=== PATIENT | male | born 1995 | race Two or more races ===

== ENCOUNTER 2017-08-13 19:43 | Inpatient (IN) | payer OTHER ==
[~2017-08-13] VITALS: Ht 162.6 cm; Wt 44.5 kg
--- NOTE | 2017-08-13 20:05 | NUR ---
[facility] FROM HOME FOR SOB. PT'S FAMILY STATING "BLOOD TINGE WHILE SUCTIONING TRACHEOSTOMY". PT IS AAOX3 AND ABLE TO SPEAK 1-2 WORD SENTENCES. SKIN IS PALE AND WARM TO TOUCH. PT TRACHED AND ON THE VENT. VENT SETTINGS AC14, 350, 50, 5. MD AT BEDSIDE. RT AT BEDSIDE.
[2017-08-13 20:12] VITALS: BP 140/93
--- NOTE | 2017-08-13 20:26 | NUR ---
PT HAS SHILEY 6 DCT. RT CHANGED OUT PT'S TRACH COMPLETELY. SUCTIONED DONE AND APPROX 50ML SEROUS OUTPUT NOTED. PT IS ON THE MONITOR AND CONTINUOUS PULSE OX. PT'S SAT IS 100%. NO C/O SOB NOTED AT THIS TIME.
[2017-08-13 20:27] LABS: BASOPHILS % (AUTO) 0.1 % (0.0-2.0); EOSINOPHILS # (AUTO) 0.1 /CMM (0.0-0.7); EOSINOPHILS % (AUTO) 0.5 % (0.0-6.0); HEMATOCRIT 40 % (39-51); HEMOGLOBIN 13.9 g/dL (13.5-17.5); LYMPHOCYTES # (AUTO) 2.3 /CMM (0.8-4.8); LYMPHOCYTES % (AUTO) 14.9 % (20.0-44.0); MEAN CORPUSCULAR HEMOGLOBIN 30 PG (26.0-33.0); MEAN CORPUSCULAR HGB CONC 35 g/dl (31.0-36.0); MEAN CORPUSCULAR VOLUME 85 fL (80-96); MONOCYTES # (AUTO) 0.8 /CMM (0.1-1.30); MONOCYTES % (AUTO) 5.4 % (2.0-12.0); NEUTROPHILS % (AUTO) 79.1 % (43.0-81.0); PLATELET COUNT (AUTO) 136 /CMM (150-450); RDW COEFFICIENT OF VARIATION 13.3 (11.5-15.0); RED BLOOD CELL COUNT(AUTO) 4.69 MIL/uL (4.5-6.0); WHITE BLOOD COUNT (AUTO) 15.2 K/uL (4.3-11.0)
[2017-08-13 20:33] LABS: INR 1.12 (0.85-1.15)
--- NOTE | 2017-08-13 20:38 | NUR ---
RADIOLOGY AT BEDSIDE
--- NOTE | 2017-08-13 21:03 | NUR ---
RT CALLED DUE TO PT'S O2 SAT GOING DOWN TO 84% AND TACHY AT 130 BPM. MD NOTIFIED
--- NOTE | 2017-08-13 21:10 | NUR ---
MD AND RT AT BEDSIDE. PT'S FAMILY MEMBER STATES THAT THE PT USUALLY USES 20% O2 AT HOME. HOWEVER, IN THE PAST 24HRS THEY HAVE BEEN USING 50% OF OXYGEN. PT WAS SUCTIONED BY RT AND CURRENT SPO2 IS 98%. TOTAL OF 170ML OF SEROSANGUINEOUS DRAINAGE WAS SUCTIONED OUT VIA TRACH TUBE.
[2017-08-13 21:15] LABS: CALCIUM, SERUM 9.9 mg/dL (8.5-10.1); CREATININE 0.2 mg/dL (0.6-1.3)
[2017-08-13] MEDS ORDERED: IV NS 0.9% 1,000 ML BAG IV ONE (21:30)
[2017-08-13] MEDS ORDERED: IV NS 0.9% 250 ML IV ONE (21:34)
[2017-08-13] MEDS ORDERED: IOHEXOL-350 100 ML VIAL IV ONE (21:34)
[2017-08-13] MEDS ORDERED: CT SWABBABLE VALVE TRANS SET 1 EA INFUS.SET MC ONE (21:35)
[2017-08-13 21:39] LABS: BAND % (MANUAL) 10 % (0.0-5.0); LYMPHOCYTES % (MANUAL) 11 % (16-48); MONOCYTES % (MANUAL) 2 % (0-11.0); NEUTROPHILS % (MANUAL) 77 (42-76)
--- NOTE | 2017-08-13 21:45 | NUR ---
RN, RT, AND EMT TRANSPORTED PT TO CT. PT ON CONTINOUS MONITOR AND PULSE OX.
[2017-08-13 21:58] VITALS: BP 146/97
--- NOTE | 2017-08-13 21:58 | NUR ---
BACK FROM CT. PT WAS IN NO DISTRESS DURING TRANSPORT. PT TOLERATED LAYING FLAT DURING CT-SCAN. PT ON CONTINOUS MONITOR AND PULSE OX.
[2017-08-13] MEDS ORDERED: PIPERACILLIN /TAZOBACTAM 3.375 G VIAL IV ONE (22:27)
[2017-08-13] MEDS ORDERED: LEVOFLOXACIN 750 MG /D5W 150ML 150 ML IV ONE ×2 (22:27→22:30)
[2017-08-13] MEDS ORDERED: PIPERACILLIN /TAZOBACTAM 3.375 G in IV D5W 50 ML IV ONE (22:30)
--- NOTE | 2017-08-13 22:40 | NUR ---
LIVING NURSE BEDSIDE FOR LAB DRAW FOR CULTURES
--- NOTE | 2017-08-13 22:51 | NUR ---
CALLED [facility] TO GIVE REPORT FOR 113-2. WAS TOLD NURSE WOULD CALL BACK
--- NOTE | 2017-08-13 22:57 | NUR ---
HEALTHCARE ADMINISTRATOR OUT OF ROOM
[2017-08-13] MEDS ORDERED: MORPHINE SULFATE INJ 2 MG/ML DISP.SYRIN IV PRN (23:00)
[2017-08-13] MEDS ORDERED: ZOLPIDEM TARTRATE 5 MG TABLET PO PRN (23:00)
[2017-08-13] MEDS ORDERED: ENOXAPARIN SODIUM 30 MG/0.3 ML DISP.SYRIN SQ SCH (23:00)
[2017-08-13] MEDS ORDERED: ACETAMINOPHEN 325 MG TABLET PO PRN (23:00)
[2017-08-13] MEDS ORDERED: MAG HYDROX/AL HYDROX/SIMETH 30 ML UDC PO PRN (23:00)
[2017-08-13] MEDS ORDERED: VANCOMYCIN 1 GM in IV D5W 250 ML IV SCH (23:00)
[2017-08-13] MEDS ORDERED: ALBUTEROL FS 2.5 MG/3 ML VIAL.NEB NEB PRN (23:00)
[2017-08-13] MEDS ORDERED: IV NS 0.9% 500 ML IV ONE (23:00)
[2017-08-13] MEDS ORDERED: MAGNESIUM HYDROXIDE 30 ML UDC PO PRN (23:00)
[2017-08-13] MEDS ORDERED: Z GUARD REMEDY 2 OZ OINT TP PRN (23:00)
[2017-08-13] MEDS ORDERED: ONDANSETRON HCL/PF 4 MG/2 ML VIAL IVP PRN (23:00)
--- NOTE | 2017-08-13 23:08 | NUR ---
REPORT GIVEN TO AURELIANO NIETO [facility] 113-2 FOR NAYELI
--- NOTE | 2017-08-13 23:10 | NUR ---
OWNER ORAL SURGEON NOTES RECEIVED PATIENT FROM ER VIA [facility], TRANSFERRED TO ROOM 113-2, TOLERATED TRANSFER WELL. PATIENT IS AWAKE, ALERT AND ORIENTED X2-3, ABLE TO VERBALIZE NEEDS, WITH FAMILY MEMBERS AT BEDSIDE, INVOLVED WITH THE PATIENT'S CARE. PATIENT NOTED WITH TRACH, ON MECHANICAL VENTILATOR AT PRESCRIBED RATE, TOLERATING WELL, NOTED WITH MODERATE AMOUNT OF BRIGHT RED BLOOD AND OCCASIONAL CLOTS WHEN SUCTIONING. PATIENT PLACED ON TELEMETRY MONITORING, REVEALING SINUS TACHYCARDIA, HR 130s. NOTED WITH GT, FLUSHED AND AUSCULTATED, PATENT AND INTACT, CLAMPED FOR NPO STATUS. IV SITES PATENT AND INTACT, PER ENDORSEMENT FROM ER, LEVAQUIN IV TO BE ADMINISTERED HERE IN [facility]. UNABLE TO COMPLETE FULL SKIN ASSESSMENT, PATIENT UNABLE TO TOLERATE TURNING/REPOSITIONING, BUT SKIN ON LEFT HIP/POSTERIOR AND LATERAL UPPER LEG NOTED TO HAVE EXTENSIVE EXCORIATION. PATIENT MADE COMFORTABLE, PLAN OF CARE DISCUSSED WITH PATIENT AND FAMILY MEMBERS. CALL LIGHT LEFT WITHIN EASY REACH, BED IN LOWEST AND LOCKED POSITION. WILL CONTINUE TO CLOSELY MONITOR
--- NOTE | 2017-08-13 23:22 | NUR ---
ENDORSED THE INFUSION OF LEVOQUIN TO [facility] NURSE EMILIA. HAND WRITTEN ORDER COMPLETED AND GIVEN TO [facility] NURSE.
[2017-08-14] VITALS (45 sets, daily range): BP systolic 67–141; BP diastolic 37–90
--- NOTE | 2017-08-14 | NUR ---
RN NOTES PATIENT RECEIVED ZOSYN IN ER @ 2300, SCHEDULED Q6H, 0000 DOSE HELD. WILL CONTINUE TO CLOSELY MONITOR
[2017-08-14] MEDS ORDERED: MORPHINE SULFATE INJ 4 MG/ML DISP.SYRIN ONE (00:17)
[2017-08-14] MEDS ORDERED: METOPROLOL TARTRATE INJ 5 MG/5 ML AMPUL ONE (00:27)
--- NOTE | 2017-08-14 00:30 | NUR ---
RN NOTES - MEDICATION OVERRIDE NO PHARMACIST AVAILABLE, MEDICATION OVERRIDE FOR DUE MEDS PERFORMED BY RELIEF CHARGE NURSE, NARCOTIC WASTE WITNESSED BY NURSE DURON . WILL ADMINISTER ALL DUE MEDS AND CONTINUE TO CLOSELY MONITOR
[2017-08-14] MEDS: METOPROLOL TARTRATE INJ 5 MG/5 ML AMPUL IVP PRN (00:31)
--- NOTE | 2017-08-14 00:45 | NUR ---
RN NOTES ON ADMISSION, PATIENT NOTED WITH EXCORIATION ON THE POSTERIOR AND LATERAL LEFT LEG. PATIENT UNABLE TO TOLERATE TURNING, PATIENT AND FAMILY REFUSE TO HAVE PHOTOGRAPH TAKEN DUE TO PATIENT'S INTOLERANCE OF POSITION
--- NOTE | 2017-08-14 00:47 | NUR ---
RT NOTE RECD TRACH VENT PT ON NOTED SETTINGS. TRACH INTACT AND SECURED. KNOTTING MACHINE OPERATOR PORTABLE DONE. VENT ALARMS ON AND AUDIBLE. VENT PLUGGED INTO RED OUTLET W/ AMBU BAG AT BEDSIDE. PT CALLS WHEN HE WANTS TO BE SUCTIONED. LAVAGED AND SX SMALL AMOUNT OF BLOOD. WILL CONTINUE TO MONITOR.
[2017-08-14] MEDS: IV NS 0.9% 1,000 ML IV PRN ×3 (00:48→19:56)
[2017-08-14] MEDS ORDERED: VANCOMYCIN 1 GM VIAL ONE (01:48)
[2017-08-14] MEDS ORDERED: PIPERACILLIN /TAZOBACTAM 3.375 G VIAL IV ONE (05:40)
[2017-08-14] MEDS: PIPERACILLIN /TAZOBACTAM 3.375 G in IV D5W 50 ML IV SCH ×6 (05:47→23:15)
--- NOTE | 2017-08-14 07:00 | NUR ---
RN CLOSING NOTES PATIENT RESTING IN BED, SUCTIONED PRN, CONTINUES WITH BRIGHT RED TRACHEAL SECRETIONS. WILL ENDORSE THE PATIENT TO THE AM SHIFT NURSE FOR NAYELI Addendum: 08/14/17 at 0832 by RAVINDRA FRANCISCO RN PATIENT REFUSING TO BE TURNED TO DUE PAIN, SCREAMING "NO" THROUGHOUT SHIFT WHEN ATTEMPTING TO REPOSITION
[2017-08-14 07:11] LABS: ALBUMIN 2.7 g/dL (3.4-5.0); BILIRUBIN,DIRECT 0.1 mg/dL (0.0-0.2); BILIRUBIN,TOTAL 0.4 mg/dL (0.2-1.0); CALCIUM, SERUM 8.4 mg/dL (8.5-10.1); CREATININE 0.2 mg/dL (0.6-1.3); MAGNESIUM 1.7 mg/dL (1.8-2.4); PHOSPHORUS 2.6 mg/dL (2.5-4.9); POTASSIUM 3.4 mmol/L (3.5-5.1); TOTAL PROTEIN, SERUM 7.6 g/dL (6.4-8.2)
[2017-08-14 07:13] LABS: EOSINOPHILS % (AUTO) 0.1 % (0.0-6.0); HEMATOCRIT 30 % (39-51); HEMOGLOBIN 10.3 g/dL (13.5-17.5); LYMPHOCYTES # (AUTO) 0.6 /CMM (0.8-4.8); MEAN CORPUSCULAR HEMOGLOBIN 30 PG (26.0-33.0); MEAN CORPUSCULAR HGB CONC 34 g/dl (31.0-36.0); MEAN CORPUSCULAR VOLUME 87 fL (80-96); MONOCYTES # (AUTO) 0.5 /CMM (0.1-1.30); MONOCYTES % (AUTO) 6.4 % (2.0-12.0); NEUTROPHILS # (AUTO) 7.3 /CMM (1.8-8.9); NEUTROPHILS % (AUTO) 86.5 % (43.0-81.0); PLATELET COUNT (AUTO) 93 /CMM (150-450); RDW COEFFICIENT OF VARIATION 13.9 (11.5-15.0); WHITE BLOOD COUNT (AUTO) 8.4 K/uL (4.3-11.0)
[2017-08-14 07:19] LABS: THYROID STIMULATING HORMONE 1.763 uIU/mL (0.358-3.74)
[2017-08-14 07:21] LABS: INR 1.11 (0.87-1.13)
--- NOTE | 2017-08-14 08:00 | NUR ---
[facility] INITIAL NOTE PATIENT STABLE A/OX3. ASKING TO BE SUCTIONED RT @ BEDSIDE. BLOOD TINGED SECRETIONS. PATIENT FREQUENTLY ASKED TO BE SUCTIONED. EDUCATED PATIENT ON FREQUENCY AND TRAMA REGARDING FREQUENT SUCTION. RT MYLES EDUCATED WELL. ALL SAFETY MEASURE IN PLACE. PT REFUSES TO BE REPOSITIONED.
[2017-08-14 08:30] LABS: BAND % (MANUAL) 4 % (0.0-5.0); LYMPHOCYTES % (MANUAL) 8 % (16-48); MONOCYTES % (MANUAL) 6 % (0-11.0); NEUTROPHILS % (MANUAL) 82 (42-76)
[2017-08-14] MEDS: PANTOPRAZOLE 40 MG VIAL IV SCH (08:38)
--- NOTE | 2017-08-14 10:00 | NUR ---
[facility] NOTE REMOVED PINK STICK NOTE FOR PATIENT SAFETY.
[2017-08-14] MEDS ORDERED: POTASSIUM CHLORIDE 20 MEQ TAB.PRT.SR PO SCH (10:30)
--- NOTE | 2017-08-14 10:36 | NUR ---
DR. MOJICA GAVE ORDERS FOR BROCHOSCOPY,TRIED FAMILY FOR CONSENT AND LEFT MESSAGE,DR. MOJICA NOTIFIED PENDING CONSENT STILL WANT PT. TRANSFERRED TO ICU,AWAITS BED ,NSG SUP AWARE.RT NOTIFIED.
[2017-08-14 10:40] LABS: ABG BASE EXCESS 2.6 mmol/L; ABG OXYGEN SATURATION 98.6 % (92.0-98.5); ABG PCO2 45.3 mmHg (35.0-45.0); ABG PH 7.405 (7.350-7.450); ABG PO2 159.3 mmHg (75.0-100.0); AaDO2 146.2 mmHg; COHb 0.2 % (0.5-1.5); MetHb 0.3 % (0.0-1.5); O2Hb 98.1 % (94.0-97.0); PEEP,BG 5 cm H2O; SITE, ABG Right Radial; VENT MODE, BG AC 50%; VT, ABG 360 mL
--- NOTE | 2017-08-14 11:00 | NUR ---
[facility] NOTE PATINET TRANSFERED TO ICU REPORT GIVEN TO JR RN. RT PRESENT DURING TRANSFER. SENT WITH PERSONAL VENT, AND CHART.
--- NOTE | 2017-08-14 11:11 | NUR ---
WOUND CARE CONSULT: PT REFUSED SKIN ASSESSMENT. PT WAS JUST TRANSFERRED TO ICU. PER NURSING STAFF, PT PREVIOUSLY REFUSED TO BE TURNED FOR PHOTOS. FIRST STEP MATTRESS ORDERED. ALL SKIN PROTECTION MEASURES IN PLACE AND DISCUSSED WITH NURSING STAFF. WILL SEE PT PT CONDITION PERMITS. MD IN AGREEMENT WITH PLAN OF CARE.
[2017-08-14] MEDS ORDERED: METO50TA16 GT (11:53)
[2017-08-14] MEDS ORDERED: CHOL10002 GT (11:53)
--- NOTE | 2017-08-14 11:55 | NUR ---
RT RECD PT TRACH'D SHILEY 6 TRACH INTACT AND SECURED. TOLERATING VENT SETTINGS. ABG DRAWN SHOWED DR MOJICA, TITRATED 02 45%. SX THICK RED BLOODY SECRETIONS. PT WANTS TO BE SUCTIONED CONSTANTLY, DR MOJICA AWARE AND SAID TO MINIMIZE SX PT DUE TO BLOOD. PT TRANSFERED TO ICU
[2017-08-14] MEDS ORDERED: PROPOFOL 100 ML IV PRN (12:30)
[2017-08-14] MEDS ORDERED: MORPHINE SULFATE INJ 4 MG/ML DISP.SYRIN IV PRN (12:30)
[2017-08-14] MEDS: Magnesium 1GM/D5W 100ML PREMIX 100 ML IV SCH ×2 (12:35→14:32)
[2017-08-14] MEDS: methylPREDNISolone SOD SUCC 125 MG/2ML VIAL IV SCH ×2 (12:36→20:09)
[2017-08-14] MEDS: PROPOFOL 10MG/ML 50ML 50 ML IV PRN ×3 (13:05→23:14)
[2017-08-14] MEDS ORDERED: LORAZEPAM INJ 2 MG/ML VIAL ONE (13:31)
[2017-08-14] MEDS ORDERED: LORAZEPAM INJ 2 MG/ML VIAL IV ONE (14:00)
[2017-08-14] MEDS ORDERED: FEE PK DOSING 1 MIN EA MC ONE (14:12)
[2017-08-14] MEDS: VANCOMYCIN 0.75 GM in IV D5W 250 ML IV SCH (14:30)
--- NOTE | 2017-08-14 15:02 | NUR ---
RESP THERAPIST POST BRONCHOSCOPY NOTE. BRONCHOSCOPY PROCEDURE DONE BY MD. PATIENT BP REMAINS MARGINAL AND TOTAL 1.5L BOLUS ORDERED BY MD. PATIENT TO BE PLACED ON LEFT LATERAL SIDE ONLY PER CRYSTALIZER OPERATOR RECOMMENDATION. UNABLE TO PLACE THE PATIENT ON KCI MATTRESS DUE TO HEMODYNAMIC INSTABILITY. UNABLE TO TURN AND REPOSITION THE PATIENT AT THIS TIME DUE TO HEMODYNAMIC INSTABILITY. TOTAL OF 2MG ATIVAN GIVEN DURING THE PROCEDURE. ATIVAN WAS OVERRIDDEN BY CHARGE NURSE.
[2017-08-14 15:22] LABS: BASOPHILS % (AUTO) 0.3 % (0.0-2.0); EOSINOPHILS % (AUTO) 0.3 % (0.0-6.0); HEMATOCRIT 24 % (39-51); HEMOGLOBIN 8.1 g/dL (13.5-17.5); LYMPHOCYTES # (AUTO) 0.3 /CMM (0.8-4.8); LYMPHOCYTES % (AUTO) 7.6 % (20.0-44.0); MEAN CORPUSCULAR HEMOGLOBIN 30 PG (26.0-33.0); MEAN CORPUSCULAR HGB CONC 34 g/dl (31.0-36.0); MEAN CORPUSCULAR VOLUME 87 fL (80-96); MONOCYTES # (AUTO) 0.2 /CMM (0.1-1.30); MONOCYTES % (AUTO) 3.7 % (2.0-12.0); NEUTROPHILS # (AUTO) 3.8 /CMM (1.8-8.9); NEUTROPHILS % (AUTO) 88.1 % (43.0-81.0); PLATELET COUNT (AUTO) 74 /CMM (150-450); RDW COEFFICIENT OF VARIATION 14.4 (11.5-15.0); RED BLOOD CELL COUNT(AUTO) 2.75 MIL/uL (4.5-6.0); WHITE BLOOD COUNT (AUTO) 4.4 K/uL (4.3-11.0)
[2017-08-14] MEDS: POTASSIUM CL. PREMIX PERIPHER. 50 ML IV SCH ×2 (15:22→17:24)
[2017-08-14] MEDS ORDERED: IV NS 0.9% 1,000 ML IV STA (15:31)
--- NOTE | 2017-08-14 18:45 | NUR ---
CONTRACTOR FIELD HAULING PATIENT REFUSED CARE DURING THE SHIFT. PATIENT REFUSES TO HAVE SCRAL WOUND PHOTOGRAPHED. PATIENT REFUSES NEW CATH INSERTION. PATIENT REFUSES TURNING AND REPOSITIONING. PATIENT REFUSES KCI MATTRESS. PATIENT TO BE PLACED ON LEFT LATERAL AT ALL TIMES PER RAILROAD OPERATOR ORDER.
--- NOTE | 2017-08-14 19:30 | NUR ---
LITHOGRAPH OPERATOR: RECEIVED TRACH TO VENT PT, TOLERATING VENT SETTINGS ORDERED. ON S/P BRONCHOSCOPY, STILL NOTED WT TRACHEAL BLEEDING DURING WHEN SUCTIONED. SEDATED ON DIPRIVAN AT 5MCG/KG/MIN, WITHDRAWS TO LOCALIZED PAIN. ST ON [address] PAINTER HELPER WT HR IN LOW 100s. AFEBRILE. GT CLAMPED AT THIS TIME. ELIUD MIDLINE INFUSING NS AT 125ML/HR. WILL REMAIN ON LEFT SIDE PER PULMO ORDER. SAFETY PRECAUTION NOTED. WILL CONTINUE TO MONITOR.
--- NOTE | 2017-08-14 20:41 | NUR ---
PT RECEIVED TRACHED SHLY 6 ON VENT. TOLERATING VENT SETTINGS. NO RESP DISTRESS. SX'D FOR LARGE AMT OF THIN TINGED SECRETIONS. VENT ALARMS SET AND AUDIBLE. AMBU BAG AT BEDSIDE. VENT PLUGGED INTO RED OUTLET. WILL CONTINUE TO MONITOR. Addendum: 08/14/17 at 2042 by MARISELA MCCORD RT Amended: Links added.
--- NOTE | 2017-08-14 22:00 | NUR ---
FIELD ADMINISTRATIVE ASSISTANT: PARENTS AT BEDSIDE. PT ABLE TO WAKE UP WHEN STIMULATED, ABLE TO FOLLOW COMMANDS AND MOUTH WORDS, ABLE TO VOID ON URINAL. COLLECTED URINE SPECIMEN VIA CLEAN CATCH.
[2017-08-14 23:35] LABS: APPEARANCE,URINE CLEAR (CLEAR); BILIRUBIN,URINE NEGATIVE (NEGATIVE); BLOOD, URINE NEGATIVE Ery/uL (NEGATIVE); COLOR,URINE YELLOW (YELLOW); KETONES,URINE TRACE (NEGATIVE); LEUKOCYTE ESTERASE ,URINE NEGATIVE (NEGATIVE); NITRITE, URINE NEGATIVE (NEGATIVE); PH,URINE 5.5 (5.0-8.0); PROTEIN,URINE NEGATIVE (NEGATIVE); UGLUCOSE NEGATIVE (NEGATIVE); UROBILINOGEN,URINE 0.2 EU/dL (0.2)
[2017-08-14 23:41] LABS: BACTERIA,URINE Few /HPF (None Seen); RBC,URINE 0-2 /HPF (0-2); SQUAMOUS EPITHELIAL CELL,UR Few /HPF (None Seen); WBC,URINE 0-2 /HPF (0-3)
[2017-08-15] VITALS (67 sets, daily range): BP systolic 81–119; BP diastolic 44–82
[2017-08-15] MEDS: VANCOMYCIN 0.75 GM in IV D5W 250 ML IV SCH ×2 (02:08→13:47)
[2017-08-15] MEDS: IV NS 0.9% 1,000 ML IV PRN ×3 (03:00→21:30)
--- NOTE | 2017-08-15 04:15 | NUR ---
SMOKE JUMPER SUPERVISOR: PT REFUSED FULL BED BATH. PARTIAL CARE RENDERED TOLERATED FAIRLY. NO ACUTE DISTRESS. NO C/O PAIN. REMAINED LIGHTLY SEDATED ON DIPRIVAN AT 5MCG/KG/MIN, ABLE TO MAKE NEEDS KNOWN VIA MOUTHING OF WORDS AND ABLE TO URINATE ON URINAL. VS WITHIN HIS BASELINE. WILL CONTINUE TO MONITOR.
[2017-08-15] MEDS: methylPREDNISolone SOD SUCC 125 MG/2ML VIAL IV SCH ×2 (05:04→13:46)
[2017-08-15] MEDS: PIPERACILLIN /TAZOBACTAM 3.375 G in IV D5W 50 ML IV SCH ×4 (05:08→23:21)
[2017-08-15 05:25] LABS: BASOPHILS % (AUTO) 0.2 % (0.0-2.0); EOSINOPHILS % (AUTO) 0.1 % (0.0-6.0); HEMATOCRIT 22 % (39-51); HEMOGLOBIN 7.8 g/dL (13.5-17.5); LYMPHOCYTES # (AUTO) 0.5 /CMM (0.8-4.8); LYMPHOCYTES % (AUTO) 16.2 % (20.0-44.0); MEAN CORPUSCULAR HEMOGLOBIN 30 PG (26.0-33.0); MEAN CORPUSCULAR HGB CONC 35 g/dl (31.0-36.0); MEAN CORPUSCULAR VOLUME 86 fL (80-96); MONOCYTES % (AUTO) 1.6 % (2.0-12.0); NEUTROPHILS # (AUTO) 2.5 /CMM (1.8-8.9); NEUTROPHILS % (AUTO) 81.9 % (43.0-81.0); PLATELET COUNT (AUTO) 129 /CMM (150-450); RDW COEFFICIENT OF VARIATION 14.2 (11.5-15.0); RED BLOOD CELL COUNT(AUTO) 2.59 MIL/uL (4.5-6.0); WHITE BLOOD COUNT (AUTO) 3.1 K/uL (4.3-11.0)
[2017-08-15 06:21] LABS: CALCIUM, SERUM 7.1 mg/dL (8.5-10.1); CREATININE 0.1 mg/dL (0.6-1.3); POTASSIUM 3.3 mmol/L (3.5-5.1)
--- NOTE | 2017-08-15 06:40 | NUR ---
LPN PER DIEM: SEDATED ON DIPRIVAN AT 10MCG/KG/MIN. EASILY AROUSABLE, ABLE TO MAKE NEEDS KNOWN VIA MOUTHING OF WORDS. STILL NOTED WT MINIMAL AMT. OF TRACHEAL BLEEDING WHEN SUCTIONED. ABLE TO VOID ON URINAL. KEPT ON LEFT SIDE AT ALL TIMES.
--- NOTE | 2017-08-15 07:52 | NUR ---
DEPALLETIZER OPERATOR/ SEDATION VACATION. RECEIVED PATIENT FORM THE PREVIOUS SHIFT. PATIENT IS IN BED. RESTING COMFORTABLY. VENT SETTINGS REVIEWED AND VERIFIED. SEDATED ON DIPRIVAN. DURING 20 MINUTES SEDATION VACATION PATIENT NOTED TO FULLY FOLLOW COMMANDS. PATIENT ON HIS LEFT LATERAL SIDE PER PULMONOLOGY RECOMMENDATION. PATIENT CLOSELY MONITORED. FAMILY AWARE.
[2017-08-15] MEDS: PANTOPRAZOLE 40 MG VIAL IV SCH (09:17)
[2017-08-15] MEDS: PROPOFOL 10MG/ML 50ML 50 ML IV PRN ×2 (09:17→13:46)
[2017-08-15] MEDS ORDERED: POTASSIUM CHLORIDE 20 MEQ POWDER PACKET GT ONE (10:00)
[2017-08-15 11:25] LABS: BASOPHILS # (AUTO) 0.1 /CMM (0.0-0.2); BASOPHILS % (AUTO) 0.7 % (0.0-2.0); HEMATOCRIT 25 % (39-51); HEMOGLOBIN 8.5 g/dL (13.5-17.5); LYMPHOCYTES # (AUTO) 0.6 /CMM (0.8-4.8); LYMPHOCYTES % (AUTO) 8.1 % (20.0-44.0); MEAN CORPUSCULAR HEMOGLOBIN 30 PG (26.0-33.0); MEAN CORPUSCULAR HGB CONC 34 g/dl (31.0-36.0); MEAN CORPUSCULAR VOLUME 88 fL (80-96); MONOCYTES # (AUTO) 0.1 /CMM (0.1-1.30); MONOCYTES % (AUTO) 1.5 % (2.0-12.0); NEUTROPHILS # (AUTO) 6.9 /CMM (1.8-8.9); NEUTROPHILS % (AUTO) 89.7 % (43.0-81.0); PLATELET COUNT (AUTO) 73 /CMM (150-450); RDW COEFFICIENT OF VARIATION 14.6 (11.5-15.0); RED BLOOD CELL COUNT(AUTO) 2.88 MIL/uL (4.5-6.0); WHITE BLOOD COUNT (AUTO) 7.7 K/uL (4.3-11.0)
[2017-08-15 11:50] LABS: BAND % (MANUAL) 4 % (0.0-5.0); LYMPHOCYTES % (MANUAL) 9 % (16-48); MONOCYTES % (MANUAL) 5 % (0-11.0); NEUTROPHILS % (MANUAL) 82 (42-76)
[2017-08-15] MEDS: LORAZEPAM INJ 2 MG/ML VIAL IV PRN ×2 (14:13→23:24)
[2017-08-15] MEDS: MORPHINE SULFATE INJ 4 MG/ML DISP.SYRIN IV PRN (14:14)
--- NOTE | 2017-08-15 17:21 | NUR ---
KNIT GOODS MENDER PATIENT IS STILL SEDATED/ LETHARGIC FROM PROCEDURE ANESTHESIA. PATIENT IS NO LONGER ON ORDERS TO KEEP ON LEFT SIDE PER COMMAND AND CONTROL OFFICER. PATIENT REFUSES TURNING AND REPOSITIONING POST BRONCHOSCOPY. PATIENT REFUSES FIRST STEP MATTRESS AT THIS TIME. PATIENT REFUSES TO HAVE SACRAL WOUND CONDITIONS EVALUATED AT THIS TIME DUE TO PAIN. REFUSES PAIN MEDICATIONS. RN EDUCATED FAMILY REGARDING RISKS AND BENEFITS. AFEBRILE. STABLE VITAL SINGS. WILL CONTINUE TO MONITOR AND PROVIDE CARE.
--- NOTE | 2017-08-15 23:12 | NUR ---
SWITCHBOARD OPERATOR RECEPTIONIST DF PT REFUSING TO BE TURNED Q 2 HOURS. PT WANTS TO BE TURNED ON HIS LEFT SIDE ONLY. PT ALSO REFUSED 1ST STEP AIR MATTRESS. ASSISTED PT WITH ALL NEEDS. PT VSS NO ACUTE DISTRESS NOTED.
--- NOTE | 2017-08-15 23:32 | NUR ---
PERSONNEL SECURITY SPECIALIST DF PT AGITATED,RESTLESS, C/O INSOMNIA INABILITY TO RELAX. ATIVAN 2MG IVP ADMIN FOR AGITATION.VSS PT A/OX4.
[2017-08-16] VITALS (28 sets, daily range): BP systolic 99–132; BP diastolic 54–95
[2017-08-16] MEDS: VANCOMYCIN 0.75 GM in IV D5W 250 ML IV SCH ×2 (02:44→14:29)
--- NOTE | 2017-08-16 04:29 | NUR ---
PATIENT RECEIVED ON [facility] VENT WITH SETTINGS ORDERED BY ANUPAMA [place]. VENT ALARMS CHECKED & AUDIBLE THROUGH OUT ICU UNIT. CUFF PRESSURE CHECKED EXTERNAL GRINDER TENDER. PT SUCTIONED Q2 & PRN FOR MOD AMOUNT OF SEMITHICK SECRETIONS. B/S DIMINISHED. PATIENT APPEARS COMFORTABLE. AMBU BAG AT [facility]. MECHANICAL VENTILATOR PLUGGED INTO RED OUTLET. WILL CONTINUE TO MONITOR. Addendum: 08/16/17 at 0429 by ALMAZ DYER RT Amended: Links added.
[2017-08-16] MEDS: PIPERACILLIN /TAZOBACTAM 3.375 G in IV D5W 50 ML IV SCH ×3 (05:08→18:37)
[2017-08-16] MEDS: IV NS 0.9% 1,000 ML IV PRN (05:08)
[2017-08-16 05:23] LABS: HEMATOCRIT 22 % (39-51); HEMOGLOBIN 7.7 g/dL (13.5-17.5); LYMPHOCYTES # (AUTO) 0.4 /CMM (0.8-4.8); LYMPHOCYTES % (AUTO) 7.1 % (20.0-44.0); MEAN CORPUSCULAR HEMOGLOBIN 30 PG (26.0-33.0); MEAN CORPUSCULAR HGB CONC 34 g/dl (31.0-36.0); MEAN CORPUSCULAR VOLUME 87 fL (80-96); MONOCYTES # (AUTO) 0.3 /CMM (0.1-1.30); MONOCYTES % (AUTO) 5.2 % (2.0-12.0); NEUTROPHILS # (AUTO) 4.8 /CMM (1.8-8.9); NEUTROPHILS % (AUTO) 87.7 % (43.0-81.0); PLATELET COUNT (AUTO) 66 /CMM (150-450); RDW COEFFICIENT OF VARIATION 14.3 (11.5-15.0); RED BLOOD CELL COUNT(AUTO) 2.57 MIL/uL (4.5-6.0); WHITE BLOOD COUNT (AUTO) 5.5 K/uL (4.3-11.0)
[2017-08-16] MEDS: MORPHINE SULFATE INJ 4 MG/ML DISP.SYRIN IV PRN ×4 (05:31→23:37)
--- NOTE | 2017-08-16 05:31 | NUR ---
EDUCATIONAL ADVISOR DF PT RESTLESS,AGITATED COMPLAINING OF BODY PAIN/DISCOMFORT 2ND TO MUSCULAR DYSTROPHY. I AND FLEXOGRAPHIC PRESS PLATE SETTER ATTEMPTED MULTIPLE WAYS TO REPOSITION FOR COMFORT AND PT REMAINS UNCOMFORTABLE WITH PAIN SCORE OF 7/10. PT WITH FACIAL GRIMACING AND MOANING AFTER AM CARE.
[2017-08-16 05:56] LABS: CALCIUM, SERUM 7.4 mg/dL (8.5-10.1); CREATININE 0.1 mg/dL (0.6-1.3)
[2017-08-16 05:59] LABS: POTASSIUM 2.4 mmol/L (3.5-5.1)
[2017-08-16] MEDS ORDERED: POTASSIUM CHLORIDE 20 MEQ TAB.PRT.SR PO ONE ×2 (06:17→06:30)
[2017-08-16 06:25] LABS: BAND % (MANUAL) 2 % (0.0-5.0); LYMPHOCYTES % (MANUAL) 5 % (16-48); MONOCYTES % (MANUAL) 8 % (0-11.0); NEUTROPHILS % (MANUAL) 85 (42-76)
--- NOTE | 2017-08-16 07:10 | NUR ---
SALES SERVICE TECHNICIAN DF REPORT GIVEN TO LEODAN BEDOYA ENDORSED 40 MEQ IV KCL NOT AVAILABLE IN ICU PYXIS. PHARMACY TO PREPARE.
--- NOTE | 2017-08-16 07:30 | NUR ---
BENZOL STILL OPERATOR RECEIVED PATIENT AWAKE ON MECHANICAL VENTILATORY SUPPORT SATURATING 98% ALERT ORIENTED X 3 AFEBRILE MONITORED BLOOD PRESSURE CLOSELY CLAMPED PEG, NO RESIDUAL NOTED USES URINAL NO OTHER COMPLAINTS NOTED
[2017-08-16] MEDS: POTASSIUM CL. PREMIX PERIPHER. 50 ML IV SCH ×4 (08:23→11:20)
[2017-08-16] MEDS: PANTOPRAZOLE 40 MG VIAL IV SCH (08:23)
--- NOTE | 2017-08-16 08:46 | NUR ---
WOUND CARE CONSULT: PT PRESENTS WITH LEFT ABDOMEN AND FLANK HEALING WOUNDS, PRESENT ON ADMISSION. PT NOTED TO HAVE SCALY SKIN CONDITION TO LEFT HIP/THIGH AREA PRESENT ON ADMISSION. FIRST STEP MATTRESS ORDERED. ALL SKIN PROTECTION AND WOUND RECOMMENDATIONS DISCUSSED WITH NURSING STAFF. RECOMMEND SURGICAL CONSULT. PT IS INCONTINENT AND IMMOBILE WITH CURRENT ILEANA SCORE OF 13. WILL SEE PRN. [place] IN AGREEMENT WITH PLAN OF CARE. Addendum: 08/16/17 at 0848 by DEWEY HERNANDEZ WNDNU Amended: Links added.
--- NOTE | 2017-08-16 09:14 | NUR ---
RT PATIENT RECEIVED TRACH'D WITH SHILEY #6 CUFFED ON VENT WITH SETTINGS PER MD ORDER. DIGITAL ASSET COORDINATOR DONE. SUCTIONED MOD AMOUNTS OF THICK, BLOOD-TINGED SECRETIONS. TRACH SECURED AND AIRWAY PATIENT. PT IS AWAKE AND ALERT. VENT ALARMS ON AND FUNCTIONING PROPERLY. AMBU BAG AT BEDSIDE. NO SIGNS OF DISTRESS NOTED AT THIS TIME. WILL CONTINUE TO MONITOR THE PATIENT FOR ANY CHANGES. Addendum: 08/16/17 at 1115 by DEMETRIUS HAMMER RT Amended: Links added.
[2017-08-16] MEDS ORDERED: IV 1/2NS 1000 ML 1,000 ML IV PRN (10:00)
[2017-08-16 12:23] LABS: *ANCANTIMYELOPEROXIDASE (MPO) <9.0 U/mL (0.0-9.0); *ANCANTIPROTEINASE 3 (PR-3) AB <3.5 U/mL (0.0-3.5)
[2017-08-16] MEDS: MULTIVITAMINS,THERAGRAN 1 UDTAB TABLET GT SCH (13:54)
[2017-08-16 15:11] LABS: *ANCA ATYPICAL p-ANCA <1:20 titer (Neg:<1:20); *ANCA CYTOPLASMIC (C-ANCA) <1:20 titer (Neg:<1:20); *ANCA PERINUCLEAR (P-ANCA) <1:20 titer (Neg:<1:20)
[2017-08-16 16:07] LABS: HEMOGLOBIN 8.3 g/dL (13.5-17.5)
--- NOTE | 2017-08-16 17:00 | NUR ---
END PACKER NO BLEEDING SEEN DURING SUCTIONING PATIENT REFUSED KCI MATTRESS, HE SAID HE DOES NOT NEED IT TRANSFERRED TO [facility], MARISELA RN , GIVEN REPORT AT BEDSIDE
[2017-08-16] MEDS: THIAMINE HCL 100 MG TABLET PO SCH (18:36)
--- NOTE | 2017-08-16 19:00 | NUR ---
TD RN NOTES RECEIVED PT FROM ICU ENDORSED GIVEN BY ICU NURSE. PT STABLE UPON BEDSIDE REPORT.
--- NOTE | 2017-08-16 19:40 | NUR ---
TD RN NOTES NO ACUTE CHANGES NOTED DURING THE SHIFT. DUE MEDS GIVEN. PROVIDED COMFORT AND SAFETY. ENDORSED TO THE PM NURSE FOR NAYELI.
--- NOTE | 2017-08-16 20:00 | NUR ---
RN NOTES RECEIVED PATIENT AWAKE IN BED WITH FAMILY AT BEDSIDE. NO DISTRESS NOTED. BREATHING EVEN AND UNLABORED. VENT SETTING WELL TOLERATED. ALERT AND ORIENTED, ABLE TO COMMUNICATE NEEDS THROUGH MOUTHWORDS. COMPLAINT OF LEG PAIN 02/28. GTUBE FEEDING WELL TOLERATED. HOB ELEVATED. CONTINENT OF BLADDER FUNCTION. KEPT CLEAN AND DRY.
[2017-08-16] MEDS: CEFEPIME 1 GM in IV D5W 50 ML IV SCH (21:32)
--- NOTE | 2017-08-16 21:54 | NUR ---
Received pt on vent support, pt stable on current settings, no SOB or respiratory distress noted.Ventilator is plugged into red outlet, alarms are audible, ambu bag at bedside. Will continue monitoring per MDS orders. Addendum: 08/16/17 at 2155 by MONTY GOEL RT Amended: Links added.
[2017-08-16] MEDS: METOPROLOL TARTRATE INJ 5 MG/5 ML AMPUL IVP PRN (22:31)
[2017-08-16] MEDS: FIBERSOURCE HN 1,000 ML BOTTLE GT PRN (22:33)
[2017-08-17] VITALS (10 sets, daily range): BP systolic 105–118; BP diastolic 56–81
[2017-08-17] MEDS: LORAZEPAM INJ 2 MG/ML VIAL IV PRN ×2 (03:08→08:45)
[2017-08-17] MEDS: MORPHINE SULFATE INJ 4 MG/ML DISP.SYRIN IV PRN (06:43)
--- NOTE | 2017-08-17 06:59 | NUR ---
RN CLOSING NOTES PATIENT IN BED, NO DISTRESS NOTED. BREATHING EVEN AND UNLABORED. WITH COMPLAINT OF PAIN, MOSTLY ON THE RIGHT KNEE. ONLY TURNED TO LEFT LATERAL REQUESTED BY THE PATIENT. HEART RATE REMAINS HIGH FROM 120'S TO 140'S. KEPT CLEAN AND DRY. WILL ENDORSE TO AM SHIFT FOR CONTINUITY OF CARE.
[2017-08-17 07:20] LABS: BASOPHILS % (AUTO) 0.3 % (0.0-2.0); HEMATOCRIT 26 % (39-51); HEMOGLOBIN 8.8 g/dL (13.5-17.5); LYMPHOCYTES # (AUTO) 0.9 /CMM (0.8-4.8); LYMPHOCYTES % (AUTO) 12.4 % (20.0-44.0); MEAN CORPUSCULAR HEMOGLOBIN 30 PG (26.0-33.0); MEAN CORPUSCULAR HGB CONC 34 g/dl (31.0-36.0); MEAN CORPUSCULAR VOLUME 87 fL (80-96); MONOCYTES # (AUTO) 0.5 /CMM (0.1-1.30); MONOCYTES % (AUTO) 6.1 % (2.0-12.0); NEUTROPHILS # (AUTO) 6.1 /CMM (1.8-8.9); NEUTROPHILS % (AUTO) 81.2 % (43.0-81.0); PLATELET COUNT (AUTO) 77 /CMM (150-450); RED BLOOD CELL COUNT(AUTO) 2.96 MIL/uL (4.5-6.0); WHITE BLOOD COUNT (AUTO) 7.5 K/uL (4.3-11.0)
[2017-08-17 07:31] LABS: CALCIUM, SERUM 7.2 mg/dL (8.5-10.1); POTASSIUM 3.3 mmol/L (3.5-5.1)
[2017-08-17 07:35] LABS: CREATININE 0.1 mg/dL (0.6-1.3)
[2017-08-17 08:36] LABS: LYMPHOCYTES % (MANUAL) 12 % (16-48); MONOCYTES % (MANUAL) 6 % (0-11.0); NEUTROPHILS % (MANUAL) 82 (42-76)
[2017-08-17] MEDS: CEFEPIME 1 GM in IV D5W 50 ML IV SCH ×2 (08:45→20:56)
[2017-08-17] MEDS: THIAMINE HCL 100 MG TABLET PO SCH (08:45)
[2017-08-17] MEDS: PANTOPRAZOLE 40 MG VIAL IV SCH (08:45)
[2017-08-17] MEDS: HYDROCODONE/APAP 5/325MG 1 EACH TABLET PO PRN (08:46)
[2017-08-17] MEDS: MULTIVITAMINS,THERAGRAN 1 UDTAB TABLET GT SCH (08:47)
--- NOTE | 2017-08-17 09:04 | NUR ---
RECEIVED AWAKE WITH RICHA ND OFF GRIMACING,PRN MEDS GIVEN,FATHER AT BEDSIDE UPDATED WITH PT. CONDITION.
[2017-08-17] MEDS ORDERED: POTASSIUM CHLORIDE 20 MEQ POWDER PACKET GT ONE (11:00)
--- NOTE | 2017-08-17 13:25 | NUR ---
[facility] RN NOTES RECEIVED PATIENT FROM MANAGER PRINTING SUHAIL, NO SIGNS OF DISTRESS, ST ON TELE MONITOR, FAMILY AT BEDSIDE, WILL CONTINUE TO MONITOR CLOSELY.
[2017-08-17] MEDS: METOPROLOL TARTRATE 50 MG TABLET GT SCH (16:08)
--- NOTE | 2017-08-17 18:44 | NUR ---
[facility] RN END NOTES PATIENT RESTING IN BED, ALL NEEDS MET, FAMILY REFUSED BED BATH FOR PATIENT STATING THEY HAD CLEANED HIM AND THEY DONT WANT TO DISTURB HIM. WILL ENDORSE TO SURGICAL TRAINING SPECIALIST FOR CONTINUITY OF CARE.
--- NOTE | 2017-08-17 21:29 | NUR ---
RN NOTES RECEIVED PATIENT IN BED WITH EYES CLOSE. NO DISTRESS NOTED. BREATHING EVEN AND UNLABORED. VENT SETTINGS WELL TOLERATED. FAMILY AT BEDSIDE. NO COMPLAINT OF PAIN OF THIS TIME. ALERT AND ORIENTED. VERBALLY ABLE TO COMMUNICATE NEEDS. VITAL SIGNS WNL. KEPT CLEAN AND DRY.
--- NOTE | 2017-08-17 22:42 | NUR ---
Received pt on vent support, pt stable on current settings, no SOB or respiratory distress noted.Ventilator is plugged into red outlet, alarms are audible, ambu bag at bedside. Will continue monitoring per MDS orders. Addendum: 08/17/17 at 2242 by MONTY GOEL RT Amended: Links added.
[2017-08-18] VITALS: BP 141/78
[2017-08-18 05:00] VITALS: BP 106/70
--- NOTE | 2017-08-18 06:19 | NUR ---
RN CLOSING NOTES CHANGE BED TO [facility]. NO DISTRESS NOTED. SLEPT WELL. NO PAIN MEDS GIVEN. INCREASED FEEDING TO 40ML WITH GOAL OF 60ML/HR. SUCTIONED LARGE AMOUNT OF SEMI LOOSE YELLOWISH SECRETION. NO SIGNIFICANT CHANGE OF CONDITION. WILL ENDORSE TO AM SHIFT FOR CONTINUITY OF CARE.
[2017-08-18] MEDS: FIBERSOURCE HN 1,000 ML BOTTLE GT PRN (06:51)
[2017-08-18 07:25] LABS: BASOPHILS % (AUTO) 0.2 % (0.0-2.0); EOSINOPHILS # (AUTO) 0.1 /CMM (0.0-0.7); EOSINOPHILS % (AUTO) 0.9 % (0.0-6.0); HEMATOCRIT 25 % (39-51); HEMOGLOBIN 8.6 g/dL (13.5-17.5); LYMPHOCYTES # (AUTO) 0.9 /CMM (0.8-4.8); LYMPHOCYTES % (AUTO) 14.8 % (20.0-44.0); MEAN CORPUSCULAR HEMOGLOBIN 30 PG (26.0-33.0); MEAN CORPUSCULAR HGB CONC 34 g/dl (31.0-36.0); MEAN CORPUSCULAR VOLUME 87 fL (80-96); MONOCYTES # (AUTO) 0.3 /CMM (0.1-1.30); MONOCYTES % (AUTO) 5.5 % (2.0-12.0); NEUTROPHILS # (AUTO) 4.6 /CMM (1.8-8.9); NEUTROPHILS % (AUTO) 78.6 % (43.0-81.0); PLATELET COUNT (AUTO) 87 /CMM (150-450); RDW COEFFICIENT OF VARIATION 13.9 (11.5-15.0); WHITE BLOOD COUNT (AUTO) 5.9 K/uL (4.3-11.0)
[2017-08-18 07:34] LABS: CREATININE 0.1 mg/dL (0.6-1.3); POTASSIUM 3.9 mmol/L (3.5-5.1)
[2017-08-18 08:00] VITALS: BP 111/76
[2017-08-18] MEDS: CEFEPIME 1 GM in IV D5W 50 ML IV SCH ×2 (09:54→20:15)
[2017-08-18] MEDS: PANTOPRAZOLE 40 MG VIAL IV SCH (09:55)
[2017-08-18] MEDS: MULTIVITAMINS,THERAGRAN 1 UDTAB TABLET GT SCH (09:55)
[2017-08-18] MEDS: CHOLECALCIFEROL 1,000 UNIT TABLET (VIT D3) GT SCH (09:56)
[2017-08-18] MEDS: THIAMINE HCL 100 MG TABLET PO SCH (09:56)
[2017-08-18] MEDS: METOPROLOL TARTRATE 50 MG TABLET GT SCH ×2 (09:56→17:00)
[2017-08-18 10:00] LABS: LYMPHOCYTES % (MANUAL) 14 % (16-48); MONOCYTES % (MANUAL) 1 % (0-11.0); NEUTROPHILS % (MANUAL) 85 (42-76)
[2017-08-18 12:00] VITALS: BP 99/67
[2017-08-18 16:00] VITALS: BP 109/74
[2017-08-18] MEDS: HYDROCODONE/APAP 5/325MG 1 EACH TABLET PO PRN (16:05)
[2017-08-18] MEDS ORDERED: LEVOFLOXACIN 500 MG /D5W 100ML 500 MG in PREMIX 1 EA IV SCH (19:30)
--- NOTE | 2017-08-18 19:30 | NUR ---
LOGISTICS SYSTEM ENGINEER OPENING NOTES RECEIVED PT IN BED ALERT, AWAKE,RESPONSIVE, VENT DEPENDENT.TRACH PATENT, NO RESPIRATORY DISTRESS NOTED.DENIES ANY PAIN OR DISCOMFORT AT THIS TIME. GT IN PLACE 2ML RESIDUAL NOTED, TOLERATES GTF WELL.CALL LIGHT WITHIN REACH, MOTHER AT THE BEDSIDE.KEPT CLEAN AND COMFORTABLE,ATTENDED ALL NEEDS.WILL CONTINUE TO MONITOR ACCORDINGLY.
[2017-08-18 20:00] VITALS: BP 104/69
--- NOTE | 2017-08-18 20:30 | NUR ---
PT RCVD ON VENT WITH NOTED SETTINGS. VENTS PLUGGED INTO RED OUTLET, VENT ALARM WORKING AND AUDIBLE. SUCTIONED SMALL AMOUNT OF WHITE THICK SECRETIONS. BILATERAL BS NOTED, NO RESPIRATORY DISTRESS NOTED AT THIS TIME. WILL CONTINUE TO MONITOR THE PT.
[2017-08-18] MEDS ORDERED: LEVOFLOXACIN 500 MG /D5W 100ML 100 ML IV ONE (21:03)
[2017-08-18] MEDS ORDERED: COLISTIMETHATE SODIUM 150 MG VIAL ONE (21:42)
[2017-08-18] MEDS ORDERED: WATER FOR INJECTION,STERILE 10 ML ONE (22:35)
[2017-08-18] MEDS: COLISTIMETHATE SODIUM 150 MG VIAL NEB SCH (22:38)
--- NOTE | 2017-08-18 23:15 | NUR ---
RN NOTES PT NOTED WITH HR 124, EVENING DOSE OF METOPROLOL 50 MG HELD PER DAY SHIFT, NOTIFIED DR CALVERT, NEW ORDER RECEIVED FOR METOPROLOL 50MG VIA GT X I DOSE,NOTED AND CARRIED OUT, MEDICATION ADMINISTERED ORDERED.WILL CONTINUE TO MONITOR.
[2017-08-18] MEDS ORDERED: METOPROLOL TARTRATE 50 MG TABLET GT ONE (23:30)
--- NOTE | 2017-08-18 23:40 | NUR ---
RN NOTES PT REFUSED PICTURES TO BE TAKEN, OFFERED X 3 EXPLAINED BENEFITS, REFUSED.WILL MONITOR
[2017-08-19] VITALS: BP 108/74
[2017-08-19] MEDS: FIBERSOURCE HN 1,000 ML BOTTLE GT PRN ×2 (04:22→23:20)
[2017-08-19 05:17] VITALS: BP 112/66
[2017-08-19] MEDS: HYDROCODONE/APAP 5/325MG 1 EACH TABLET PO PRN (06:09)
--- NOTE | 2017-08-19 07:03 | NUR ---
RN CLOSING NOTES PT IN BED AWAKE, VENT DEPENDENT, TRACH PATENT, NO RESPIRATORY DISTRESS NOTED. RESPIRATIONS EVEN, UNLABORED. DENIES ANY PAIN OR DISCOMFORT AT THIS TIME. GT IN PLACE,TOLERATES GTF WELL, HOB ELEVATED.IV SITES INTACT PATENT.REFUSED TO BE TURNED AND REPOSITIONED, OFFERED X3 .REFUSED PICTURES TO BE TAKEN.KEPT CLEAN AND COMFORTABLE, ATTENDED ALL NEEDS. WILL CONTINUE TO MONITOR ACCORDINGLY.
--- NOTE | 2017-08-19 07:10 | NUR ---
PRICING CLERK NOTE: RECEIVED PATIENT IN BED, AWAKE AND NOT ON ANY FORM OF DISTRESS. ON TELE MONITOR, ST WITH HR 116. ON VENT-TRACH DEPENDENT AND TOLERATING WELL THE CURRENT SETTINGS. ON GT FEEDING FIBERSOURCE @60ML/HR AND TOLERATING WELL. (R) UA MIDLINE, (R) HAND 20G AND (L) WRIST 18G NOTED. BED ALARM AND LOCKED ON. SAFETY AND ASPIRATION PRECAUTION OBSERVED. CALL LIGHT WITHIN REACH. DENIED ANY PAIN OR DISCOMFORT.
[2017-08-19 07:56] LABS: CALCIUM, SERUM 8.6 mg/dL (8.5-10.1); POTASSIUM 4.8 mmol/L (3.5-5.1)
[2017-08-19 08:00] VITALS: BP_SYST 106; BP_SYST 130; BP_DIAS 49; BP_DIAS 76
[2017-08-19 08:02] LABS: CREATININE 0.1 mg/dL (0.6-1.3)
[2017-08-19] MEDS: CEFEPIME 1 GM in IV D5W 50 ML IV SCH ×2 (08:49→21:39)
[2017-08-19] MEDS: THIAMINE HCL 100 MG TABLET PO SCH (08:50)
[2017-08-19] MEDS: METOPROLOL TARTRATE 50 MG TABLET GT SCH ×2 (08:50→16:39)
[2017-08-19] MEDS: MULTIVITAMINS,THERAGRAN 1 UDTAB TABLET GT SCH (08:50)
[2017-08-19] MEDS: CHOLECALCIFEROL 1,000 UNIT TABLET (VIT D3) GT SCH (08:50)
[2017-08-19] MEDS: PANTOPRAZOLE 40 MG VIAL IV SCH (09:01)
--- NOTE | 2017-08-19 10:00 | NUR ---
CARPET CLEANER NOTE: PATIENT REFUSED TO BE TURN Q2HR. FAMILY PRESENT AT THE BEDSIDE. DISCUSSED THE IMPORTANCE OF TURNING AND REPOSITIONING. PATIENT STRONGLY REFUSED TO BE TURN. WILL CONTINUE TO OFFER AND CHECK WITH THE PATIENT.
[2017-08-19] MEDS: COLISTIMETHATE SODIUM 150 MG VIAL NEB SCH (11:08)
[2017-08-19 12:00] VITALS: BP 102/69
--- NOTE | 2017-08-19 12:00 | NUR ---
AMBULANCE DRIVER PARAMEDIC NOTE: PATIENT OFFERED TO BE TURNED BUT HE STRONGLY REFUSED. FAMILY PRESENT AT THE BEDSIDE. DISCUSSED THE IMPORTANCE OF TURNING AND REPOSITIONING. PATIENT STRONGLY REFUSED TO BE TURN. WILL CONTINUE TO CHECK THE PATIENT.
--- NOTE | 2017-08-19 14:00 | NUR ---
WEBSPHERE ADMINISTRATOR NOTE: PATIENT OFFERED TO BE REPOSITIONED. MOTHER PRESENT AT THE BEDSIDE. PT STRONGLY REFUSED TO BE MOVED. EXPLAINED THE RISKS AND BENEFITS OF REPOSITIONING. WILL CONTINUE TO OFFER AGAIN.
[2017-08-19 16:00] VITALS: BP 101/65
--- NOTE | 2017-08-19 16:00 | NUR ---
FILTER SCREEN CLEANER NOTE: PATIENT REMAINED ON HIS (L) LATERAL SIDE. OFFERED TO GET REPOSITION, BUT REFUSED TO GET MOVED. MOTHER PRESENT AT THE BEDSIDE. WILL CONTINUE TO EDUCATE ABOUT TURNING.
--- NOTE | 2017-08-19 18:00 | NUR ---
LICENSED PLUMBER NOTE: PATIENT REMAINED ON COMFORTABLE POSITION IN BED. OFFERED TO GET REPOSITION. STRONGLY REFUSED DESPITE RE-EDUCATING THE IMPORTANCE OF IT. WILL CONTINUE TO MONITOR.
--- NOTE | 2017-08-19 18:40 | NUR ---
RT END OF THE SHIFT REPORT: PT. 22 Y OLD MALE ALERT AND RESPONSIVE. REMAIN TRACHED SHILEY # 6 AND ON VENT WITH NOTED SETTINGS, ALARMS ARE SET AND FUNCTIONAL. B/S RHONCHI AND EQUAL CHEST RISE NOTED. NO DISTRESS NOTED T/O SHIFT SUX'D FOR SMALL AMT. OF WHITE SECRETIONS. VENT PLUGGED INTO RED OUT LET AMBU BAT AT THE BEDSIDE. PT. REMAIN STABLE. REPORT WILL BE PASS TO PM SHIFT. Addendum: 08/19/17 at 1842 by SHAILESH CONNOR RT Amended: Links added.
--- NOTE | 2017-08-19 19:12 | NUR ---
LITHOPRESS OPERATOR NOTE: PATIENT IN BED, GT FEEDING (FIBERSOURCE) CONTINUOUSLY RUNNING AT 60ML/HR. ON STABLE CONDITION. DENIED PAIN. REPORT GIVEN TO PM RN FOR CONTINUITY OF CARE. FAMILY PRESENT AT THE BEDSIDE. ON TELE MONITOR, ST 102.
--- NOTE | 2017-08-19 19:27 | NUR ---
PT RCVD ON VENT WITH NOTED SETTINGS. PT IS ALERT AND AWAKE. VENTS PLUGGED INTO RED OUTLET, VENT ALARM WORKING AND AUDIBLE. SUCTIONED SMALL AMOUNT OF WHITE THICK SECRETIONS. BILATERAL BS NOTED, NO RESPIRATORY DISTRESS NOTED AT THIS TIME. WILL CONTINUE TO MONITOR THE PT.
--- NOTE | 2017-08-19 19:40 | NUR ---
FIRE CAPTAIN MARINE INITIAL NOTES, RECEIVE PATIENT IN BED, ALERT AND ORIENTED, ON VENT SETTINGS, BREATHING EVEN AND UNLABORED NO S/S OF SOB OR ACUTE DISTRESS NOTED AT THIS TIME, NO C/O PAIN OR DISCOMFORT AT THIS TIME, FAMILY AT BEDSIDE, RT PROVIDING CARE AT THIS TIME, IV ON RIGHT HAND AND MIDLINE ON ELIUD PATENT AND INTACT. GTF FEEDING FIBERSOURCE RUNNING PER ORDERS AND PATIENT TOLERATING WELL, . BED LOCKED AND IN LOWEST POSITION, NOTED CLEAN AND DRY, CALL LIGHT W/I REACH, WILL CONTINUE TO MONITOR CLOSELY.
[2017-08-19 20:00] VITALS: BP 107/74
[2017-08-19] MEDS: LEVOFLOXACIN 500 MG /D5W 100ML 500 MG in PREMIX 1 EA IV SCH (20:50)
[2017-08-20] VITALS (7 sets, daily range): BP systolic 92–108; BP diastolic 54–66
[2017-08-20] MEDS: LORAZEPAM INJ 2 MG/ML VIAL IV PRN (01:43)
--- NOTE | 2017-08-20 07:00 | NUR ---
RN NOTES, RECEIVE PATIENT IN BED, A/Ox2, VENT/ TRACH DEPENDENT , TOLERATING CURRENT VENT SETTING WELL, BREATHING EVEN AND UNLABORED ,NO S/S OF SOB OR ACUTE DISTRESS NOTED AT THIS TIME, ON TELE HR IS IN 130,S ST , RIGHT UPPER ARM MIDLINE AND R HAND IV G 20 AND L WRIST G 18 SITES CDI, FIBERSOURCE AT 60CC/HR RUNNING VIA GT SITE , TOLERATING WELL, BED LOCKED AND IN LOWEST POSITION,SR UPx3, CALL LIGHT W/I EASY REACH, WILL CONTINUE TO MONITOR CLOSELY.
[2017-08-20 08:06] LABS: CALCIUM, SERUM 8.7 mg/dL (8.5-10.1); CREATININE 0.1 mg/dL (0.6-1.3); POTASSIUM 4.6 mmol/L (3.5-5.1)
[2017-08-20] MEDS: THIAMINE HCL 100 MG TABLET PO SCH (09:03)
[2017-08-20] MEDS: CHOLECALCIFEROL 1,000 UNIT TABLET (VIT D3) GT SCH (09:03)
[2017-08-20] MEDS: PANTOPRAZOLE 40 MG VIAL IV SCH (09:03)
[2017-08-20] MEDS: MULTIVITAMINS,THERAGRAN 1 UDTAB TABLET GT SCH (09:03)
[2017-08-20] MEDS: METOPROLOL TARTRATE 50 MG TABLET GT SCH ×2 (09:08→16:56)
[2017-08-20] MEDS: CEFEPIME 1 GM in IV D5W 50 ML IV SCH ×2 (09:09→21:26)
--- NOTE | 2017-08-20 12:00 | NUR ---
RN NOTES PT REFUSED AM CARE, AND REFUSED TO TURN AND BE REPOSITION . SUPPORTIVE FAMILY AT THE BEDSIDE.
[2017-08-20] MEDS: FIBERSOURCE HN 1,000 ML BOTTLE GT PRN (16:55)
--- NOTE | 2017-08-20 18:23 | NUR ---
closing pt alert oriented mouth speaks remains on ventilator no change in settings. family refused bathing and linen change. suctioned several times per family request no noted secretions. family educated about pt out come to go home. no distress noted all shift.
[2017-08-20] MEDS: LEVOFLOXACIN 500 MG /D5W 100ML 500 MG in PREMIX 1 EA IV SCH (20:08)
[2017-08-21] VITALS: BP 99/63
--- NOTE | 2017-08-21 02:36 | NUR ---
Received pt on vent support, pt stable on current vent settings, no SOB or respiratory distress noted. Mechanical Ventilator is plugged into red outlet, alarms are set & audible, BVM bag at head of bed. Will continue monitoring Addendum: 08/21/17 at 0236 by ALMAZ DYER RT Amended: Links added.
[2017-08-21 04:00] VITALS: BP 97/64
--- NOTE | 2017-08-21 07:18 | NUR ---
RN INITIAL NOTES: REC'D PT AWAKE ON BED, NOT IN ANY DISTRESS, A/O X 4, ABLE TO MAKE NEEDS KNOWN. ON MV VIA TRACH, SATING AT 100%. ON TELEMONITOR, SR W/ HR 96 BPM. ON CONTINUOUS TUBE FEEDING FIBERSOURCE X 60 CC/HR INFUSING WELL VIA GT. HAS 3 IV LINE ACCESS: ELIUD MIDLINE, L WRIST G18, AND R HAND G20 - ALL FLUSHING WELL, PATENT & INTACT W/ NO S/SX OF INFECTION/INFILTRATION NOTED. PROVIDED COMFORT & SAFETY MEASURES. BED KEPT LOW & IN LOCKED POS. CALL LIGHT PLACED W/IN REACH. WILL CONTINUE TO MONITOR AND ATTEND PT NEEDS.
[2017-08-21 07:38] LABS: BASOPHILS % (AUTO) 0.3 % (0.0-2.0); EOSINOPHILS # (AUTO) 0.4 /CMM (0.0-0.7); EOSINOPHILS % (AUTO) 5.2 % (0.0-6.0); HEMATOCRIT 30 % (39-51); HEMOGLOBIN 9.7 g/dL (13.5-17.5); LYMPHOCYTES # (AUTO) 1.3 /CMM (0.8-4.8); LYMPHOCYTES % (AUTO) 18.2 % (20.0-44.0); MEAN CORPUSCULAR HEMOGLOBIN 29 PG (26.0-33.0); MEAN CORPUSCULAR HGB CONC 33 g/dl (31.0-36.0); MEAN CORPUSCULAR VOLUME 87 fL (80-96); MONOCYTES # (AUTO) 0.6 /CMM (0.1-1.30); MONOCYTES % (AUTO) 7.7 % (2.0-12.0); NEUTROPHILS # (AUTO) 4.9 /CMM (1.8-8.9); NEUTROPHILS % (AUTO) 68.6 % (43.0-81.0); PLATELET COUNT (AUTO) 145 /CMM (150-450); RDW COEFFICIENT OF VARIATION 14.1 (11.5-15.0); RED BLOOD CELL COUNT(AUTO) 3.41 MIL/uL (4.5-6.0); WHITE BLOOD COUNT (AUTO) 7.2 K/uL (4.3-11.0)
[2017-08-21 07:57] LABS: CALCIUM, SERUM 8.7 mg/dL (8.5-10.1); CREATININE 0.2 mg/dL (0.6-1.3); PHOSPHORUS 3.8 mg/dL (2.5-4.9); POTASSIUM 4.6 mmol/L (3.5-5.1)
[2017-08-21 08:00] VITALS: BP 103/72
--- NOTE | 2017-08-21 08:38 | NUR ---
RN NOTES: [facility] MED PINK ALERTS ON EMAR CLEARED FOR PT'S SAFETY. MEDICATIONS NON ADMINISTERED.
[2017-08-21] MEDS: CEFEPIME 1 GM in IV D5W 50 ML IV SCH ×2 (08:39→20:00)
[2017-08-21] MEDS: PANTOPRAZOLE 40 MG VIAL IV SCH (08:39)
[2017-08-21] MEDS: MULTIVITAMINS,THERAGRAN 1 UDTAB TABLET GT SCH (08:39)
[2017-08-21] MEDS: CHOLECALCIFEROL 1,000 UNIT TABLET (VIT D3) GT SCH (08:40)
[2017-08-21] MEDS: THIAMINE HCL 100 MG TABLET PO SCH (08:40)
[2017-08-21] MEDS: METOPROLOL TARTRATE 50 MG TABLET GT SCH ×2 (08:41→16:32)
[2017-08-21] MEDS: MORPHINE SULFATE INJ 4 MG/ML DISP.SYRIN IV PRN ×2 (10:37→22:02)
--- NOTE | 2017-08-21 10:39 | NUR ---
RN NOTES: PT C/O CHEST PAIN, 02/28, ACHING & TIGHTNESS. BP 111/76, HR 98, O2 SAT 100%. EXPLAINED TO FAMILY THE NEED TO GIVE MORPHINE TO HELP RELIEVE PAIN. PT ALSO REQUESTED FOR MORPHINE PRN MED. ECG ORDERED STAT. Addendum: 08/21/17 at 1451 by RIKY PARRY RN ECG DONE SHOWED SINUS TACHYCARDIA. PT VERBALIZED THAT HE WAS RELIEVED W/ MORPHINE. AND PT VERBALIZED THAT IT'S MORE OF BECAUSE OF SUCTIONING THAT CAUSING HIS CHEST PAIN.
[2017-08-21 12:00] VITALS: BP 123/80
[2017-08-21] MEDS ORDERED: LEVO750T21 PO (12:19)
[2017-08-21] MEDS ORDERED: MULT-24 GT (12:19)
[2017-08-21] MEDS ORDERED: ALBUT2 NEB (12:19)
[2017-08-21] MEDS ORDERED: Fibersource Hn GT (12:19)
[2017-08-21] MEDS ORDERED: THIA100T13 PO (12:19)
--- NOTE | 2017-08-21 15:00 | NUR ---
RN NOTES: OFFERED BED BATH AND TURNING/ REPOSITIONING TO THE PT BUT PT REFUSED. FAMILY IS AWARE.
[2017-08-21 16:00] VITALS: BP 102/68
--- NOTE | 2017-08-21 17:00 | NUR ---
RN NOTES: PT IS ABOUT TO BE DC TO HOME TODAY ORDERED. HOWEVER, FAMILY IS CONCERNED ABOUT THE TRACH OF THE PT. THEY SAID THAT WHAT THE PT IS USING AT HOME IS CUFFLESS (DASHALEY 6 CFN) AND THEY WANTED TO CHANGE IT PRIOR TO LEAVING. DR. JAIMES MADE AWARE WITH ORDERS MAY CHANGE TRACH PER FAMILY/PT'S REQUEST AND CANCEL THE DC ORDERS FOR NOW. DR. BLOOM ALSO INFORMED AND AGREED FOR ENT REFERRAL FOR TRACH CHANGE. LEFT A VM TO DR. SANDERS/DR. JIMENEZ'S OFFICE REGARDING THE CONSULT. PT & FAMILY UPDATED. SESAR SHARIF INFORMED. Addendum: 08/21/17 at 1916 by RIKY PARRY RN CONSENT SIGNED BY FAMILY FOR TRACH CHANGE, PLACED IN CHART. NICOLE 6 UNCUFFED AT BEDSIDE.
[2017-08-21] MEDS: FIBERSOURCE HN 1,000 ML BOTTLE GT PRN (17:30)
--- NOTE | 2017-08-21 18:18 | NUR ---
DR. ROWE RETURNED CALL WILL CHANGE TRACH IN AM,DELAYED DISCHARGE CM AWARE.
--- NOTE | 2017-08-21 19:00 | NUR ---
RN CLOSING NOTES: NO ACUTE CHANGES NOTED W/IN SHIFT. PT TOLERATED MV SETTINGS VIA TRACH, SATING AT 100%. ON TELEMONITOR, STILL SR/ST. CONTINUOUS TUBE FEEDING FIBERSOURCE X 60 CC/HR TOLERATED WELL, NO RESIDUAL W/IN SHIFT. 3 IV LINE ACCESS: ELIUD MIDLINE, L WRIST G18, AND R HAND G20 - KEPT PATENT & INTACT W/ NO S/SX OF INFECTION/INFILTRATION NOTED. KEPT WELL RESTED. NEEDS ATTENDED. BED KEPT LOW & IN LOCKED POS. CALL LIGHT PLACED W/IN REACH. ENDORSED TO PM RN FOR NAYELI. DR. BLOOM AND DR. JAIMES ORDERED TO CANCEL DC ORDERS TODAY. CN AND CM MADE AWARE.
[2017-08-21 20:00] VITALS: BP 93/57
[2017-08-21] MEDS: LEVOFLOXACIN 500 MG /D5W 100ML 500 MG in PREMIX 1 EA IV SCH (20:00)
--- NOTE | 2017-08-21 20:00 | NUR ---
received patient in bed, with his dad at the bedside. patient is vent/trach dependent, no distress noted saturation 100%. patient is AAO, can make his needs be known by mouth wording. patient refused to be fully assessed, declined skin assessment. patient was explained of importance of skin care and turning Q2H, patient still refused
--- NOTE | 2017-08-21 20:45 | NUR ---
RT RECEIVED PT TRACHED WITH NOTED VENT SETTINGS, DEPUTY FIRE CHIEF DONE AND TRACH IS SECURE. SX WITH MOD THK WHITE/CLEAR SECRETIONS. VENT ALARMS CHECKED AND AUDIBLE. VENT PLUGGED IN RED OUTLET. AMBU BAG NOTED HOB. NO RESP DISTRESS NOTED AT THIS TIME, WILL CONTINUE TO MONITOR T/O SHIFT
--- NOTE | 2017-08-21 22:00 | NUR ---
patient c/o pain to BLE - morphine 4mg IVP given, continue to monitor
--- NOTE | 2017-08-21 22:40 | NUR ---
patient is calm, denies pain at this time. continue to monitor.
[2017-08-22] VITALS (7 sets, daily range): BP systolic 96–116; BP diastolic 61–73
--- NOTE | 2017-08-22 03:50 | NUR ---
patient c/o bilat. leg pain and asked for morphine, morphine 4m IVP was given as ordered continue to monitor
[2017-08-22] MEDS: MORPHINE SULFATE INJ 4 MG/ML DISP.SYRIN IV PRN ×2 (03:52→23:41)
--- NOTE | 2017-08-22 04:30 | NUR ---
pain reduction, patient is asleep
--- NOTE | 2017-08-22 07:30 | NUR ---
FARM MANAGEMENT PROFESSOR AM NOTES: REC'D PT AWAKE IN BED, NOT IN ANY DISTRESS, A/O X 4, ABLE TO MAKE NEEDS KNOWN. SHILEY 6 TRACH TO VENT, SETTING ORDERED, O2 SAT AT 100%, TELEMETRY READS ST HR 111. DENIES CHEST PAIN/DISCOMFORT. ON CONTINUOUS TUBE FEEDING FIBERSOURCE X 60 CC/HR INFUSING WELL VIA GT. 5ML RESIDUAL. IV ACCESS ELIUD MIDLINE, L WRIST G18, ALL FLUSHING WELL, SITE CLEAR. REFUSE BODY ASSESSMENT. COMFORT & SAFETY MEASURES IN PLACE. BED LOW & IN LOCKED POS. CALL LIGHT PLACED W/IN REACH. WILL CONTINUE TO MONITOR AND ATTEND PT NEEDS.
[2017-08-22] MEDS: THIAMINE HCL 100 MG TABLET PO SCH (08:48)
[2017-08-22] MEDS: PANTOPRAZOLE 40 MG VIAL IV SCH (08:48)
[2017-08-22] MEDS: CHOLECALCIFEROL 1,000 UNIT TABLET (VIT D3) GT SCH (08:48)
[2017-08-22] MEDS: METOPROLOL TARTRATE 50 MG TABLET GT SCH ×2 (08:49→16:06)
[2017-08-22] MEDS: CEFEPIME 1 GM in IV D5W 50 ML IV SCH (08:49)
[2017-08-22] MEDS: MULTIVITAMINS,THERAGRAN 1 UDTAB TABLET GT SCH (08:49)
--- NOTE | 2017-08-22 09:30 | NUR ---
ROOF ASSEMBLER NOTES DUE MEDS GIVEN. MAXIPIME IV STARTED AT 0849. WAITING FOR DR. SANDERS FOR TRACH CHANGE PRIOR TO DC.
[2017-08-22] MEDS: FIBERSOURCE HN 1,000 ML BOTTLE GT PRN (13:16)
--- NOTE | 2017-08-22 13:33 | NUR ---
RT PT IS AWAKE, ALERT AND RESPONSIVE. RECEIVED PT TRACH'D ON MECH VENT WITH SETTINGS PER MD ORDER. MANAGER TRADE DONE. BILAT BREATH SOUNDS ON AUSCULTATION. TRACH SECURE AND AIRWAY PATENT. VENT PLUGGED INTO RED OUTLET. SUCTIONED SMALL AMOUNTS OF THICK, PALE YELLOW SECRETIONS. ALARMS ON AND FUNCTIONING PROPERLY. AMBU BAG AT HEAD OF BED. NO SOB OR SIGNS OF DISTRESS NOTED AT THIS TIME. WILL CONTINUE TO MONITOR THE PATIENT FOR ANY CHANGES. Addendum: 08/22/17 at 1729 by DEMETRIUS HAMMER RT Amended: Links added.
--- NOTE | 2017-08-22 18:35 | NUR ---
LAND RECLAMATION SPECIALIST NOTES DR. SANDERS AT BEDSIDE. KOLE CASE MANAGEMENT NOTIFIED RE AMBULANCE PO[facility].
--- NOTE | 2017-08-22 18:50 | NUR ---
RN NOTES PATIENT TO BE DISCHARGED TO HOME TODAY PER MD IN STABLE CONDITION. ALL NEEDS MET. STILL WAITING FOR KOLE BRAZER INDUCTION FOR AMBULANCE [facility] CLOUD ARCHITECT TIME. Addendum: 08/22/17 at 1904 by KIRT DOVE RN PROVIDED DC INSTRUCTIONS, MED RECON LIST/PRESCRIPTIONS, HEALTH TEACHINGS. ALL PAPERWORKS SIGNED. PATIENT REFUSED TO BE CHANGED AND REFUSE TO HAVE PHOTOS OF SKIN ISSUES. ENDORSED TO NEXT SHIFT FOR NAYELI.
--- NOTE | 2017-08-22 19:46 | NUR ---
RN CLOSING NOTE RECEIVED PATIENT IN THE BED, ALERT/ORIENTED X3, FATHER IS BY BEDSIDE, DC ORDER HOME TODAY, NO RESPIRATORY DISTRESS NOTED, SIDE RAILS UP 2, CALL LIGHT WITHIN REACH
[2017-08-22] MEDS ORDERED: CEFEPIME 1 GM in IV NS 0.9% 50 ML IV SCH (21:00)
[2017-08-22] MEDS ORDERED: LEVOFLOXACIN (500MG) 500 MG TABLET PO SCH (21:00)
--- NOTE | 2017-08-23 | NUR ---
rn closing note PATIENT WAS DISCHARGED TODAY IN STABLE CONDITION, NO PAIN OR DISCOMFORT NOTED, NO RESPIRATORY DISTRESS NOTED, PATIENT LEFT IN STABLE CONDITION, VITAL SIGNS UPON DISCHARGE BP 112/87, RESPIRATIONS 18, TEM 98.3 F, HR 108, SO2 100%, ON MECHANICAL VENTILATOR, WAS TRANSFERRED WITH RESPIRATORY THERAPIST, MIDLINE WAS REMOVED FROM RIGHT UPPER ARM, TIP IS INTACT, NO S/S OF INFECTION NOTED, NO BLEEDING, USED STERILE TECHNIQUE WITH 2 RN'S, REMOVED PERIPHERAL LEFT WRIST 18 GAUGE, NO INFECTION, NO BLEEDING, TOLERATED PROCEDURE WELL, ALL DISCHARGE INSTRUCTION GIVEN, ALL PAPERWORK PROVIDED, PRESCRIPTION FOR L[place] PROVIDED AND INSTRUCTED HOW TO TAKE, EXPLAINED SIDE EFFECTS, PATIENT AND DAD VERBALIZED UNDESTANDING, ALL QUESTIONS WERE ANSWERED, PATIENT LEFT VIA [facility], [facility] UP PATIENT WITH THEIR OWN RESPIRATORY THERAPIST Addendum: 08/23/17 at 0055 by NORMA BILL RN PATIENT REFUSED TO TAKE PICTURE, AND PERFORM BODY/SKIN ASSESSMENT, EXPLAIN PATIENT AND PT'S DAD RISK AND BENEFITS BUT STILL REFUSED
[2017-08-23] MEDS ORDERED: ACIDOPHILUS/BULGARICUS 1 EACH TAB.CHEW PO SCH (09:00)
== END 2017-08-23 00:10 | disposition home or self-care (01) | DRG 720 ==
LOC: ER 19:45 → TELE-TD 22:49 → ICU 08-14 10:53 → TELE-TD 08-16 17:02 → TELE1 08-18 08:29
PROVIDERS: ADMIT Internal Medicine; ATTEND Internal Medicine
PROC: 5A1955Z Respiratory Ventilation, Greater than 96 Consecutive Hours (ICD-10-PCS; principal; 2017-08-13)
PROC: 0B9M8ZX Drainage of Bilateral Lungs, Via Natural or Artificial Opening Endoscopic, Diagnostic (ICD-10-PCS; 2017-08-14)
PROC: 05H533Z Insertion of Infusion Device into Right Subclavian Vein, Percutaneous Approach (ICD-10-PCS; 2017-08-14)
PROC: 0B9M8ZX Drainage of Bilateral Lungs, Via Natural or Artificial Opening Endoscopic, Diagnostic (ICD-10-PCS; 2017-08-15)
DX: A41.9 Sepsis, unspecified organism (principal); J96.21 Acute and chronic respiratory failure with hypoxia; J69.0 Pneumonitis due to inhalation of food and vomit; J90 Pleural effusion, not elsewhere classified; Z99.11 Dependence on respirator [ventilator] status; J15.6 Pneumonia due to other Gram-negative bacteria; J15.1 Pneumonia due to Pseudomonas; G71.0 Muscular dystrophy; R53.2 Functional quadriplegia; E44.0 Moderate protein-calorie malnutrition; D69.6 Thrombocytopenia, unspecified; D62 Acute posthemorrhagic anemia; E83.42 Hypomagnesemia; E87.6 Hypokalemia; I12.9 Hypertensive chronic kidney disease with stage 1 through stage 4 chronic kidney disease, or unspecified chronic kidney disease; K21.9 Gastro-esophageal reflux disease without esophagitis; N18.9 Chronic kidney disease, unspecified; Z93.0 Tracheostomy status; N20.0 Calculus of kidney; Z68.1 Body mass index [BMI] 19.9 or less, adult; R04.2 Hemoptysis; R13.10 Dysphagia, unspecified
CPT/HCPCS: 31623; 31720; 36415; 36569; 36600; 71045-TC; 80048-TC; 80061-TC; 80076-TC; 80202-TC; 81000-TC; 82746; 83516; 83520; 83540-TC; 83605-TC; 83735-TC; 84100-TC; 84132-TC; 84443-TC; 85025-TC; 85027-TC; 85610-TC; 85730-TC; 86256; 86850-TC; 87040-TC; 87070-TC; 87081-TC; 87186-TC; 93970-TC; 94002-TC; 94003-TC; 94760-TC; 94762-TC; A4216; A4217; A4606; A4623; A6402; A6403; A7526; C9113; J0692; J0770; J1956; J2060; J2270; J2405; J2543; J2930; J3370; J3475; J3480; J3490; J7030; J7040; J7050; J7060; Q9967; Z7610

== ENCOUNTER 2017-11-25 10:45 | Inpatient (IN) | payer OTHER ==
[~2017-11-25] VITALS: Ht 162.6 cm; Wt 53.5 kg
[~2017-11-25 10:45] MED LIST: ALBUT2 NEB; CHOL10002 GT; Fibersource Hn GT; LEVO750T21 PO; METO50TA16 GT; MULT-24 GT; THIA100T13 PO
[2017-11-25 11:14] LABS: BASOPHILS # (AUTO) 0.1 /CMM (0.0-0.2); BASOPHILS % (AUTO) 0.7 % (0.0-2.0); EOSINOPHILS % (AUTO) 1.4 % (0.0-6.0); HEMATOCRIT 40 % (39-51); HEMOGLOBIN 13.5 g/dL (13.5-17.5); LYMPHOCYTES # (AUTO) 1.3 /CMM (0.8-4.8); LYMPHOCYTES % (AUTO) 14.1 % (20.0-44.0); MEAN CORPUSCULAR HGB CONC 34 g/dl (31.0-36.0); MEAN CORPUSCULAR VOLUME 82 fL (80-96); MONOCYTES # (AUTO) 0.4 /CMM (0.1-1.30); MONOCYTES % (AUTO) 4.9 % (2.0-12.0); NEUTROPHILS # (AUTO) 7.1 /CMM (1.8-8.9); NEUTROPHILS % (AUTO) 78.9 % (43.0-81.0); PLATELET COUNT (AUTO) 97 /CMM (150-450); RDW COEFFICIENT OF VARIATION 13.7 (11.5-15.0); RED BLOOD CELL COUNT(AUTO) 4.92 MIL/uL (4.5-6.0)
[2017-11-25 11:23] LABS: CALCIUM, SERUM 9.3 mg/dL (8.5-10.1); CARBON DIOXIDE 33 mmol/L (21-32); CHLORIDE 100 mmol/L (98-107); CREATININE 0.3 mg/dL (0.6-1.3); GLUCOSE 123 mg/dL (74-106); POTASSIUM 3.8 mmol/L (3.5-5.1); SODIUM SERUM 138 mmol/L (136-145); UREA NITROGEN, BLOOD 14 mg/dL (7-18)
[2017-11-25 11:27] LABS: INR 1.06 (0.85-1.15)
[2017-11-25 11:29] LABS: ALANINE AMINOTRANSFERASE 28 U/L (12-78); ALBUMIN 3.3 g/dL (3.4-5.0); ALKALINE PHOSPHATASE 75 U/L (46-116); ASPARTATE AMINOTRANSFERASE 23 U/L (15-37); BILIRUBIN,DIRECT 0.1 mg/dL (0.0-0.2); BILIRUBIN,TOTAL 0.3 mg/dL (0.2-1.0); TOTAL PROTEIN, SERUM 9.5 g/dL (6.4-8.2)
[2017-11-25 11:30] LABS: TROPONIN I < 0.017 ng/mL (0.00-0.056)
[2017-11-25 11:31] VITALS: BP 114/78
[2017-11-25 11:38] LABS: BAND % (MANUAL) 1 % (0.0-5.0); EOSINOPHILS % (MANUAL) 2 % (0-4); LYMPHOCYTES % (MANUAL) 13 % (16-48); MONOCYTES % (MANUAL) 3 % (0-11.0); NEUTROPHILS % (MANUAL) 81 (42-76)
[2017-11-25] MEDS ORDERED: D5W IV ONE (12:00)
[2017-11-25] MEDS ORDERED: GENTAMICIN IV ONE (12:00)
[2017-11-25] MEDS ORDERED: CEFTRIAXONE 1GM BAG (ER ONLY) 1 GM/50 ML PIGGYBACK IV ONE (12:00)
[2017-11-25] MEDS ORDERED: CEFTRIAXONE 1GM BAG (ER ONLY) 50 ML IV ONE (12:02)
[2017-11-25 13:00] VITALS: BP 114/84
[2017-11-25 13:15] VITALS: BP 114/84
[2017-11-25] MEDS: ACETYLCYSTEINE 10% SOLN 400 MG/4 ML VIAL NEB SCH ×2 (15:30→23:30)
[2017-11-25] MEDS ORDERED: ZOLPIDEM TARTRATE 5 MG TABLET PO PRN (15:30)
[2017-11-25] MEDS ORDERED: MAGNESIUM HYDROXIDE 30 ML UDC PO PRN (15:30)
[2017-11-25] MEDS ORDERED: HYDROCODONE/APAP 10/325MG 1 EA TABLET PO PRN (15:30)
[2017-11-25] MEDS ORDERED: HYDROCODONE/APAP 5/325MG 1 EACH TABLET PO PRN (15:30)
[2017-11-25] MEDS ORDERED: MAG HYDROX/AL HYDROX/SIMETH 30 ML UDC PO PRN (15:30)
[2017-11-25] MEDS ORDERED: ONDANSETRON HCL/PF 4 MG/2 ML VIAL IVP PRN (15:30)
[2017-11-25] MEDS ORDERED: Z GUARD REMEDY 2 OZ OINT TP PRN (15:30)
[2017-11-25] MEDS ORDERED: FEE PK DOSING 1 MIN EA MC ONE (15:49)
[2017-11-25 16:00] VITALS: BP 99/72
[2017-11-25] MEDS: IV NS 0.9% 1,000 ML IV PRN (16:21)
[2017-11-25] MEDS: VANCOMYCIN 1 GM in IV D5W 250 ML IV SCH ×2 (16:21→23:06)
[2017-11-25] MEDS: METOPROLOL TARTRATE 50 MG TABLET GT SCH (16:34)
[2017-11-25] MEDS ORDERED: PIPERACILLIN /TAZOBACTAM 4.5 G in IV NS 0.9% 50 ML IV SCH (18:00)
[2017-11-25] MEDS: PIPERACILLIN /TAZOBACTAM 3.375 G in IV D5W 50 ML IV SCH ×2 (18:35→23:45)
[2017-11-25] MEDS: ACETAMINOPHEN 325 MG TABLET PO PRN (19:31)
[2017-11-25 20:00] VITALS: BP 99/68
[2017-11-26] VITALS: BP 97/62
[2017-11-26 04:00] VITALS: BP 143/98
[2017-11-26] MEDS: IV NS 0.9% 1,000 ML IV PRN (04:10)
[2017-11-26] MEDS: PIPERACILLIN /TAZOBACTAM 3.375 G in IV D5W 50 ML IV SCH ×3 (05:10→17:03)
[2017-11-26 06:51] LABS: BASOPHILS % (AUTO) 0.2 % (0.0-2.0); EOSINOPHILS % (AUTO) 0.8 % (0.0-6.0); HEMATOCRIT 35 % (39-51); HEMOGLOBIN 11.7 g/dL (13.5-17.5); LYMPHOCYTES # (AUTO) 0.6 /CMM (0.8-4.8); MEAN CORPUSCULAR HGB CONC 33 g/dl (31.0-36.0); MEAN CORPUSCULAR VOLUME 82 fL (80-96); MONOCYTES # (AUTO) 0.7 /CMM (0.1-1.30); MONOCYTES % (AUTO) 9.1 % (2.0-12.0); NEUTROPHILS # (AUTO) 6.8 /CMM (1.8-8.9); NEUTROPHILS % (AUTO) 82.9 % (43.0-81.0); PLATELET COUNT (AUTO) 95 /CMM (150-450); RDW COEFFICIENT OF VARIATION 14.5 (11.5-15.0); RED BLOOD CELL COUNT(AUTO) 4.29 MIL/uL (4.5-6.0); WHITE BLOOD COUNT (AUTO) 8.2 K/uL (4.3-11.0)
[2017-11-26 06:55] LABS: CREATININE 0.2 mg/dL (0.6-1.3); MAGNESIUM 1.7 mg/dL (1.8-2.4); PHOSPHORUS 3.1 mg/dL (2.5-4.9); POTASSIUM 3.3 mmol/L (3.5-5.1)
[2017-11-26 07:11] LABS: THYROID STIMULATING HORMONE 1.038 uIU/mL (0.358-3.74)
[2017-11-26] MEDS: ACETYLCYSTEINE 10% SOLN 400 MG/4 ML VIAL NEB SCH ×3 (07:24→23:58)
[2017-11-26 08:00] VITALS: BP 116/77
[2017-11-26] MEDS: METOPROLOL TARTRATE 50 MG TABLET GT SCH ×2 (08:20→16:13)
[2017-11-26] MEDS: VANCOMYCIN 1 GM in IV D5W 250 ML IV SCH (08:20)
[2017-11-26 08:39] LABS: BAND % (MANUAL) 1 % (0.0-5.0); EOSINOPHILS % (MANUAL) 3 % (0-4); LYMPHOCYTES % (MANUAL) 8 % (16-48); MONOCYTES % (MANUAL) 9 % (0-11.0); NEUTROPHILS % (MANUAL) 79 (42-76)
[2017-11-26] MEDS ORDERED: POTASSIUM CL. PREMIX PERIPHER. 50 ML IV SCH (10:00)
[2017-11-26] MEDS ORDERED: POTASSIUM CHLORIDE 10 MEQ TABLET.SA GT ONE (11:00)
[2017-11-26] MEDS: Magnesium 1GM/D5W 100ML PREMIX 100 ML IV SCH ×2 (11:15→16:01)
[2017-11-26] MEDS ORDERED: OSMOLITE 1.2 CAL 1,000 ML LIQUID GT PRN (11:30)
[2017-11-26 12:00] VITALS: BP 119/89
[2017-11-26] MEDS ORDERED: CEFTRIAXONE 1 G in IV D5W 50 ML IV SCH (15:00)
[2017-11-26 16:00] VITALS: BP_SYST 106; BP_SYST 119; BP_DIAS 79; BP_DIAS 89
[2017-11-26] MEDS: LACTOBACILLUS RHAMNOSUS GG 1 EACH CAP.SPRINK GT SCH (16:13)
[2017-11-26] MEDS: ACETAMINOPHEN 325 MG TABLET PO PRN ×2 (16:13→23:19)
[2017-11-26 20:00] VITALS: BP_SYST 101; BP_SYST 123; BP_DIAS 62; BP_DIAS 85
[2017-11-27] VITALS: BP 101/62
[2017-11-27] MEDS: VANCOMYCIN 1 GM in IV D5W 250 ML IV SCH ×3 (00:15→15:46)
[2017-11-27] MEDS: PIPERACILLIN /TAZOBACTAM 3.375 G in IV D5W 50 ML IV SCH ×3 (00:16→11:23)
[2017-11-27] MEDS: IV NS 0.9% 1,000 ML IV PRN (03:37)
[2017-11-27 04:00] VITALS: BP 119/79
[2017-11-27 07:05] LABS: BASOPHILS % (AUTO) 0.5 % (0.0-2.0); EOSINOPHILS % (AUTO) 2.1 % (0.0-6.0); HEMATOCRIT 35 % (39-51); HEMOGLOBIN 11.5 g/dL (13.5-17.5); LYMPHOCYTES # (AUTO) 1.2 /CMM (0.8-4.8); LYMPHOCYTES % (AUTO) 23.1 % (20.0-44.0); MEAN CORPUSCULAR HGB CONC 33 g/dl (31.0-36.0); MEAN CORPUSCULAR VOLUME 82 fL (80-96); MONOCYTES # (AUTO) 0.6 /CMM (0.1-1.30); MONOCYTES % (AUTO) 10.7 % (2.0-12.0); NEUTROPHILS # (AUTO) 3.4 /CMM (1.8-8.9); NEUTROPHILS % (AUTO) 63.6 % (43.0-81.0); PLATELET COUNT (AUTO) 91 /CMM (150-450); RDW COEFFICIENT OF VARIATION 14.6 (11.5-15.0); WHITE BLOOD COUNT (AUTO) 5.4 K/uL (4.3-11.0)
[2017-11-27 07:10] LABS: CALCIUM, SERUM 8.7 mg/dL (8.5-10.1); CREATININE 0.2 mg/dL (0.6-1.3); MAGNESIUM 2.2 mg/dL (1.8-2.4); PHOSPHORUS 3.3 mg/dL (2.5-4.9); POTASSIUM 3.5 mmol/L (3.5-5.1)
[2017-11-27 07:26] LABS: APPEARANCE,URINE CLEAR (CLEAR); BILIRUBIN,URINE NEGATIVE (NEGATIVE); BLOOD, URINE NEGATIVE Ery/uL (NEGATIVE); COLOR,URINE YELLOW (YELLOW); KETONES,URINE NEGATIVE (NEGATIVE); LEUKOCYTE ESTERASE ,URINE NEGATIVE (NEGATIVE); NITRITE, URINE NEGATIVE (NEGATIVE); PROTEIN,URINE NEGATIVE (NEGATIVE); UGLUCOSE NEGATIVE (NEGATIVE); UROBILINOGEN,URINE 0.2 EU/dL (0.2)
[2017-11-27] MEDS: ACETYLCYSTEINE 10% SOLN 400 MG/4 ML VIAL NEB SCH ×2 (07:35→15:55)
[2017-11-27 08:00] VITALS: BP 117/74
[2017-11-27] MEDS: LACTOBACILLUS RHAMNOSUS GG 1 EACH CAP.SPRINK GT SCH ×2 (08:43→17:00)
[2017-11-27] MEDS: METOPROLOL TARTRATE 50 MG TABLET GT SCH ×2 (08:43→16:09)
[2017-11-27 10:27] LABS: BAND % (MANUAL) 2 % (0.0-5.0); LYMPHOCYTES % (MANUAL) 26 % (16-48); MONOCYTES % (MANUAL) 12 % (0-11.0); NEUTROPHILS % (MANUAL) 60 (42-76)
[2017-11-27 12:00] VITALS: BP 106/76
[2017-11-27] MEDS ORDERED: AMOX-430 PO (13:50)
[2017-11-27 16:00] VITALS: BP 107/75
[2017-11-27 16:09] VITALS: BP 107/75
[2017-11-27] MEDS ORDERED: PIPERACILLIN /TAZOBACTAM 3.375 G in IV NS 0.9% 100 ML IV SCH (18:00)
== END 2017-11-27 20:10 | disposition home health service (06) | DRG 133 ==
LOC: ER 10:46 → TELE-TD 12:44 → TELE1 11-26 09:59
PROC: 5A1945Z Respiratory Ventilation, 24-96 Consecutive Hours (ICD-10-PCS; principal; 2017-11-25)
PROC: 05H633Z Insertion of Infusion Device into Left Subclavian Vein, Percutaneous Approach (ICD-10-PCS; 2017-11-27)
DX: J96.21 Acute and chronic respiratory failure with hypoxia (principal); Z99.11 Dependence on respirator [ventilator] status; E44.0 Moderate protein-calorie malnutrition; R53.2 Functional quadriplegia; J90 Pleural effusion, not elsewhere classified; G71.0 Muscular dystrophy; D69.6 Thrombocytopenia, unspecified; R04.2 Hemoptysis; D64.9 Anemia, unspecified; N20.0 Calculus of kidney; Z68.20 Body mass index [BMI] 20.0-20.9, adult; I10 Essential (primary) hypertension; K21.9 Gastro-esophageal reflux disease without esophagitis; Z87.01 Personal history of pneumonia (recurrent)
CPT/HCPCS: 31720; 36415; 36569; 71045-TC; 80048-TC; 80061-TC; 80076-TC; 80202-TC; 81000-TC; 83605-TC; 83735-TC; 84100-TC; 84443-TC; 84484-TC; 85025-TC; 85730-TC; 87040-TC; 87081-TC; 87086-TC; 94002-TC; 94003-TC; 94760-TC; 94761-TC; 94762-TC; 99082-TC; A4216; A4606; A6402; J0696; J1580; J2405; J2543; J3370; J3475; J3480; J3490; J7030; J7060; L8501; Z7610